=== PATIENT | female | born 1930 | race Caucasian/White ===

== ENCOUNTER → 2016-08-08 | Day surgery (SDC) | payer MEDICARE, BC ==
[~2016-08-08] MED LIST: ACYCLOVIR400 MG PO; ALPRAZOLAM1 MG PO; AMITIZA24 MCG PO; ANASTROZOLE1 MG PO; ANEXSIA 7.5/3251 TA1 PO; ARIMIDEX1 MG PO; BYSTOLIC10 MG PO; C-10001000 M1 PO; CELEBREX PO; DIOVAN HCT 3201 EACH PO; DIOVAN PO; DULCOLAX5 M1; DULCOLAX5 MG PO; EXFORGE 10-3201 TAB PO; EXFORGE 5-320 M1 TAB PO; FUROSEMIDE40 MG PO; FUROSEMIDE80 MG PO; HYDROCODON-ACE1 EAC7 PO; HYDROCODONE/APA1 T16 PO; K-DUR20 ME1 PO; KCL PO; LASIX PO; MICRO-K PO; MONTELUKAST SOD10 MG PO; OMEPRAZOLE20 M2 PO; OS-CAL 500+D CA1 TA1 PO; OS-CAL 500+D31 EACH PO; PHENERGAN25 M1 PO; PHILLIPS' COLO1 EACH PO; PROAIR HFA8.5 GM INH; PROBIOTIC1 EAC3 PO; PROTONIX PO; STOOL SOFTENER100 M1 PO; TRAMADOL HCL50 M2 PO; TRIAMCINOLONE A15 G3 EXT; VALSARTAN320 MG PO; VITAMIN B-121500 MCG PO; VITAMIN E1000 UNI1 PO; VOLTAREN75 MG PO
--- NOTE | ~2016-08-08 | OR ---
Unit #: [id number] #: [id number] Patient: MAC DAY [id number] [address] [place], [place] [address] [id number] O MR#: [id number] NAME: MAC DAY ROOM: Date of Procedure: 08/08/2016 Admission Date: 08/08/2016 Surgeon: Sergei Jones M.D. : 1930 Attending Physician: Sergei Jones M.D. Primary Care Physician: Luis Ro M.D. OPERATIVE REPORT PREOPERATIVE DIAGNOSES Back pain, radiculopathy, spinal stenosis, degenerative disk disease. POSTOPERATIVE DIAGNOSES Back pain, radiculopathy, spinal stenosis, degenerative disk disease. PROCEDURE PERFORMED Lumbar epidural steroid injection with intravenous sedation and fluoroscopic guidance for needle localization. INDICATIONS FOR PROCEDURE The patient is an 86-year-old female with return of significant pain of back and left lower extremity. She has severe multilevel multifactorial disease and is poorly responsive to medication. She is not a surgical candidate. She failed other rehab. Epidural steroids reasonable palliation. Last injection was done little bit over 3 months ago. Based on good response, plan is to repeat injection today. She does get these injections a little more frequent quite significant amounts of pain. DESCRIPTION OF PROCEDURE The patient was placed in a seated position. Standard monitors were applied. 2 mg of Versed were given for sedation and anxiolysis, which were adequate. Vital signs remained stable. Sterile prep and drape then of the lumbar area was performed. The skin then at the L4-L5 level was localized with 1% lidocaine. An 18-gauge Clarus Therapeuticstead needle was then advanced via loss of resistance technique and fluoroscopic guidance in toward the epidural space. The patient did not complain of any pain or paresthesia during needle advancement. After confirming proper positioning with fluoroscopy and radiographic contrast, 80 mg of Depo-Medrol and 6 mL of 0.125% bupivacaine were deposited. The patient tolerated the procedure otherwise well and was discharged to the recovery room in stable condition. Dictated by... Padma Song/crystal TD: 08/09/2016 01:08 JOB #: [id number] Unit #: [id number] #: [id number] Patient: MAC DAY OPERATIVE REPORT Page 1 of 1 X Sergei Jones MD X PROCEDURE OPERATIVE NOTE
== END | disposition home or self-care (01) ==
LOC: CCSC 10:14
DX: M51.16 Intervertebral disc disorders with radiculopathy, lumbar region (principal); M48.06 Spinal stenosis, lumbar region; K21.9 Gastro-esophageal reflux disease without esophagitis; M19.90 Unspecified osteoarthritis, unspecified site; I10 Essential (primary) hypertension; E03.9 Hypothyroidism, unspecified; I73.9 Peripheral vascular disease, unspecified; B20 Human immunodeficiency virus [HIV] disease; Z85.038 Personal history of other malignant neoplasm of large intestine
CPT/HCPCS: J1040; J2250

== ENCOUNTER → 2016-09-19 | Day surgery (SDC) | payer MEDICARE, BC ==
--- NOTE | ~2016-09-19 | OR ---
Unit #: [id number] #: [id number] Patient: MAC DAY [id number] [address] [address] [id number] O MR#: [id number] NAME: MAC DAY. ROOM: Date of Procedure: 09/19/2016 Admission Date: 09/19/2016 Surgeon: Sergei Jones M.D. : 1930 Attending Physician: Sergei Jones M.D. Primary Care Physician: Luis Ro M.D. OPERATIVE REPORT JOB NOTE: CC: [facility] PREOPERATIVE DIAGNOSES Back pain, radiculopathy, spinal stenosis, degenerative disk disease. POSTOPERATIVE DIAGNOSES Back pain, radiculopathy, spinal stenosis, degenerative disk disease. PROCEDURE PERFORMED Lumbar epidural steroid injection with intravenous sedation and fluoroscopic guidance for needle localization. INDICATIONS FOR PROCEDURE The patient is an 86-year-old female, who has had a return of back and bilateral lower extremity pains due to significant multilevel multifactorial degenerative disk disease and spinal stenosis. The patient is not a surgical candidate. She tolerated medications poorly. Epidural steroids the only things that have given her reasonable improvement. She has got these a littme more frequently, they are the only modality that helped to settle the pain when it is badly flared. DESCRIPTION OF PROCEDURE The patient was placed in a seated position. Standard monitors were applied. 2 mg of Versed were given for sedation and anxiolysis, which were adequate. Vital signs remained stable. Sterile prep and drape then of the lumbar area was performed. The skin then at the L4-L5 level was localized with 1% lidocaine. An 18-gauge Lennon Lin[place] needle was then advanced via loss of resistance technique and fluoroscopic guidance in toward the epidural space. After confirming proper positioning with fluoroscopy and radiographic contrast, 80 mg of Depo-Medrol and 4 mL of 0.125% bupivacaine were deposited. The patient tolerated the procedure otherwise well and was discharged to the recovery room in stable condition. Dictated by... Sergei Jones M.D. LHP/modl TD: 09/20/2016 00:52 JOB #: [id number] Unit #: [id number] #: [id number] Patient: MAC DAY OPERATIVE REPORT Page 1 of 1 X Sergei Jones MD X PROCEDURE OPERATIVE NOTE
== END | disposition home or self-care (01) ==
LOC: CCSC 10:53
DX: M51.16 Intervertebral disc disorders with radiculopathy, lumbar region (principal); M48.06 Spinal stenosis, lumbar region; I10 Essential (primary) hypertension; K21.9 Gastro-esophageal reflux disease without esophagitis; M19.90 Unspecified osteoarthritis, unspecified site; E66.01 Morbid (severe) obesity due to excess calories; Z85.038 Personal history of other malignant neoplasm of large intestine
CPT/HCPCS: J1040; J2250

== ENCOUNTER → 2016-10-03 | Day surgery (SDC) | payer MEDICARE, BC ==
--- NOTE | ~2016-10-03 | OR ---
Unit #: [id number] #: [id number] Patient: MAC DAY [id number] [address] [address] [id number] O MR#: [id number] NAME: MAC DAY ROOM: Date of Procedure: 10/03/2016 Admission Date: 10/03/2016 Surgeon: Sergei Jones M.D. : 1930 Attending Physician: Sergei Jones M.D. Primary Care Physician: Luis Ro M.D. OPERATIVE REPORT PREOPERATIVE DIAGNOSES 1. Back pain, radiculopathy, degenerative disk disease. 2. Hip pain, degenerative hip disease. PROCEDURES PERFORMED 1. Lumbar epidural steroid injection with intravenous sedation and fluoroscopic guidance for needle localization. 2. Left hip injection with fluoroscopic guidance. DESCRIPTION OF PROCEDURE The patient was placed in a seated position. Standard monitors were applied. 2 mg of Versed were given for sedation and anxiolysis, which were adequate. Vital signs remained stable. Sterile prep and drape then of the lumbar area was performed. The skin at the L4 level was localized with 1% lidocaine. An 18-gauge The Bakerytead needle was then advanced via loss of resistance technique and fluoroscopic guidance in toward the epidural space. After confirming proper needle tip positioning with fluoroscopy and radiographic contrast, 80 mg of Depo-Medrol and 6 mL of 0.125% bupivacaine were deposited. The patient tolerated this part of procedure well. The patient was then placed in a supine position. Fluoroscopy was used to identify the midpoint of the left hip. The skin lateral to this prepped with alcohol and localized with 1% lidocaine. A 22-gauge Quincke point spinal needle was then advanced with fluoroscopic guidance to the greater trochanter and was advanced of the edge of this. With negative aspiration, a total a 10 mL of 0.25% bupivacaine and 40 mg of Kenalog were deposited. The patient tolerated the procedure otherwise well and was discharged to the recovery room in stable condition. Dictated by... Padma Song/crystal TD: 10/04/2016 00:23 JOB #: [id number] Unit #: [id number] #: [id number] Patient: BARBMAC M OPERATIVE REPORT Page 1 of 1 X Sergei Jones MD X PROCEDURE OPERATIVE NOTE
== END | disposition home or self-care (01) ==
LOC: CCSC 10:57
DX: M51.16 Intervertebral disc disorders with radiculopathy, lumbar region (principal); M16.12 Unilateral primary osteoarthritis, left hip; E66.01 Morbid (severe) obesity due to excess calories; K21.9 Gastro-esophageal reflux disease without esophagitis; I10 Essential (primary) hypertension; I73.9 Peripheral vascular disease, unspecified; Z85.038 Personal history of other malignant neoplasm of large intestine; Z79.51 Long term (current) use of inhaled steroids; Z79.891 Long term (current) use of opiate analgesic; Z79.899 Other long term (current) drug therapy
CPT/HCPCS: J1040; J2250; J3301

== ENCOUNTER → 2016-10-17 | Day surgery (SDC) | payer MEDICARE, BC ==
--- NOTE | ~2016-10-17 | OR ---
Unit #: [id number] #: [id number] Patient: MAC DAY [id number] [address] [place], [place] [address] [id number] O MR#: [id number] NAME: MAC DAY. ROOM: Date of Procedure: 10/17/2016 Admission Date: 10/17/2016 Surgeon: Sergei Jones M.D. : 1930 Attending Physician: Sergei Jones M.D. Referring Physician: Sergei Jones M.D. Primary Care Physician: Luis Ro M.D. OPERATIVE REPORT PREOPERATIVE DIAGNOSES Back pain, radiculopathy, spinal stenosis, degenerative disk disease. POSTOPERATIVE DIAGNOSES Back pain, radiculopathy, spinal stenosis, degenerative disk disease. PROCEDURE PERFORMED Lumbar epidural steroid injection with intravenous sedation and fluoroscopic guidance for needle localization. INDICATIONS FOR PROCEDURE The patient is an 86-year-old female with previously mentioned nonsurgical pathology and treated medically with p.r.n. epidural steroid injections. She has tried single injection She had two injections done at this point over the last few weeks. We are going to proceed with a final injection today and then see her back in the office. DESCRIPTION OF PROCEDURE The patient was placed in a seated position. Standard monitors were applied. 2 mg of Versed were given for sedation and anxiolysis, which were adequate. Vital signs remained stable. Sterile prep and drape then of the lumbar area was performed. The skin at the L4-L5 level was localized with 1% lidocaine. An 18-gauge Hoojatead needle was then advanced via loss of resistance technique and fluoroscopic guidance in toward the epidural space. After confirming this position with fluoroscopy and radiographic contrast, 80 mg of Depo-Medrol and 4 mL of 0.125% bupivacaine were deposited. The patient tolerated the procedure otherwise well. Dictated by... Padma Song/elliel TD: 10/18/2016 10:37 JOB #: [id number] Unit #: [id number] #: [id number] Patient: MAC DAY OPERATIVE REPORT Page 1 of 1 X Sergei Jones MD X PROCEDURE OPERATIVE NOTE
== END | disposition home or self-care (01) ==
LOC: CCSC 10:56
PROVIDERS: Pain Medicine Pain Medicine
PROC: 3E0S3BZ Introduction of Anesthetic Agent into Epidural Space, Percutaneous Approach (ICD-10-PCS; 2016-10-17)
PROC: 3E0S33Z Introduction of Anti-inflammatory into Epidural Space, Percutaneous Approach (ICD-10-PCS; principal; 2016-10-17 12:00)
DX: M48.06 Spinal stenosis, lumbar region (principal); M51.16 Intervertebral disc disorders with radiculopathy, lumbar region; K21.9 Gastro-esophageal reflux disease without esophagitis; I10 Essential (primary) hypertension; M19.90 Unspecified osteoarthritis, unspecified site; Z85.038 Personal history of other malignant neoplasm of large intestine
CPT/HCPCS: J1040; J2250

== ENCOUNTER → 2016-11-11 | Outpatient (CLI) | payer MEDICARE, BC ==
--- NOTE | ~2016-11-11 | MY29 ---
[facility] A Service of [facility] RADIOLOGY TEXT RESULTS PATIENT: MAC DAY LOCATION: [facility] : 32 UNIT #: [id number] AGE: [address]: WILLIAM VICENTE MD SEX: F ORDER DR: [id number] [facility] [address] [place], [place] [address] [id number] O MR#: [id number] Acc #: [id number] NAME: MAC DAY : 1930 SEX: F STUDY DATE/TIME: 11/11/2016 14:22 UNIT: [facility] ROOM: STUDY DESCRIPTION: MY DOMENIC SCREENING W/ CAD BILAT Attending Physician: William Vicente M.D. Ordering Physician: William Vicente M.D. Primary Care Physician: Luis Ro M.D. MEDICAL IMAGING REPORT This report is preliminary unless electronic signature is present EXAM Digital screening mammogram 11/11/2016 HISTORY 86-year-old woman, previous left lumpectomy with adjuvant therapy. Personal and family history, niece. Annual screening. COMPARISON STUDIES Comparison mammograms date to 01/17/2006 with most recent 11/01/2015. FINDINGS Digital imaging of each breast was completed utilizing screening protocol. Review includes FDA-approved CAD device. Lumpectomy markers are placed on the left. Breast parenchyma is fatty replaced and stable. I see no interval occurring mass. Lumpectomy scar is omitted from today's images related to positioning. There is continuing post-radiation skin thickening about the nipple areolar complex on the left. There are secretory calcifications bilaterally. IMPRESSION Exam is somewhat limited due to inability to optimally position the left breast. The lumpectomy scar is omitted from this year's exam. I see no suspicious finding at this time. Annual screening recommended. Patients over the age of 40 are entered into a reminder system with target due date for the next mammogram. A result letter will also be sent to the patient. BIRADS:2 [facility] A Service of [facility] RADIOLOGY TEXT RESULTS PATIENT: MAC DAY LOCATION: [facility] : 32 UNIT #: [id number] AGE: [address]: WILLIAM VICENTE MD SEX: F ORDER DR: Dictated by... Issa Pulido M.D. THIS IS AN ELECTRONICALLY VERIFIED REPORT Issa Pulido M.D. at 11/12/2016 12:22 PM REINA/óscar TD: 11/12/2016 01:27 JOB #: [id number] MEDICAL IMAGING REPORT Page 1 of 1 COPY
== END | disposition home or self-care (01) ==
LOC: CWCC 14:06
DX: Z12.31 Encounter for screening mammogram for malignant neoplasm of breast (principal); Z85.3 Personal history of malignant neoplasm of breast; Z80.3 Family history of malignant neoplasm of breast; Z98.890 Other specified postprocedural states
CPT/HCPCS: G0202

== ENCOUNTER 2016-12-07 05:14 | Emergency (ER) | payer MEDICARE, BC ==
[~2016-12-07] VITALS: Ht 154.9 cm; Wt 133.8 kg
--- NOTE | ~2016-12-07 | CR72 ---
[facility] A Service of [facility] RADIOLOGY TEXT RESULTS PATIENT: MAC DAY LOCATION: [facility] : 32 UNIT #: [id number] AGE: [address]: Fawn Rodriguez MD SEX: F ORDER DR: [id number] [facility] [address] [place], [place] [address] [id number] E MR#: [id number] Acc #: [id number] NAME: MAC DAY. : 1930 SEX: F STUDY DATE/TIME: 12/07/2016 5:43 UNIT: [facility] ROOM: STUDY DESCRIPTION: CR Chest Single View Portable Attending Physician: Fawn Rodriguez M.D. Ordering Physician: Thomas Smith M.D. Primary Care Physician: Luis Ro M.D. MEDICAL IMAGING REPORT This report is preliminary unless electronic signature is present EXAM Chest x-ray, 12/07/2016. HISTORY 86-year-old female in the ED complaining of 2-week history of cough, weakness, and headache. TECHNIQUE AP portable chest x-ray. FINDINGS Low lung volumes with mild bibasilar pulmonary atelectasis. Lungs otherwise clear. No visible airspace consolidation or pleural effusion. Moderate cardiomegaly. Pulmonary vascularity is within normal limits. IMPRESSION Moderate cardiomegaly. Shallow lung expansion with mild bibasilar atelectasis. Dictated by... Se Watts M.D. THIS IS AN ELECTRONICALLY VERIFIED REPORT Se Watts M.D. at 12/07/2016 3:54 PM RGW/carson TD: 12/07/2016 12:58 JOB #: [id number] MEDICAL IMAGING REPORT Page 1 of 1 COPY
--- NOTE | ~2016-12-07 | CT71 ---
[facility] A Service of [facility] RADIOLOGY TEXT RESULTS PATIENT: MAC DAY [id number] 32 UNIT #: [id number] AGE: [address]: Fawn Rodriguez MD SEX: F ORDER DR: [id number] [facility] [address] [place], [place] [address] [id number] E MR#: [id number] Acc #: [id number] NAME: MAC DAY : 1930 SEX: F STUDY DATE/TIME: 12/07/2016 6:00 UNIT: [facility] ROOM: STUDY DESCRIPTION: CT Head Wo Contrast Attending Physician: Fawn Rodriguez M.D. Ordering Physician: Thomas Smith M.D. Primary Care Physician: Luis Ro M.D. MEDICAL IMAGING REPORT This report is preliminary unless electronic signature is present EXAM CT head without IV contrast COMPARISON CT temporal bones dated July 11, 2003. INDICATIONS 86-year-old female with headaches, dry mouth, dizziness and confusion today. FINDINGS This CT exam was performed with one or more of the following radiation dose reduction techniques: Automatic exposure control, adjustment of mA and/or kV according to patient size, and iterative reconstruction. The exam is limited by motion. There is no evidence of acute fracture or suspicious osseous lesions. There are calcifications of the cavernous internal carotid arteries. No abnormal extraaxial fluid collection. No mass effect. No acute intracranial hemorrhage. Mild cerebral and cerebellar volume loss, commensurate with patient age. Minimal senescent calcification of the right lentiform nucleus. Evaluation of the posterior fossa is limited by streak artifact from inner table of the calvarium and motion. No convincing evidence of acute ischemia. IMPRESSION No acute intracranial abnormality. Please note the exam is mildly limited by motion. Mild cerebral and cerebellar volume loss, commensurate with patient age. Dictated by... Evin Riddle M.D. THIS IS AN ELECTRONICALLY VERIFIED REPORT [facility] A Service of [facility] RADIOLOGY TEXT RESULTS PATIENT: MAC DAY [id number] : 32 UNIT #: [id number] AGE: [address]: Fawn Rodriguez MD SEX: F ORDER DR: Eivn Riddle M.D. at 12/09/2016 9:55 PM BLM/psc TD: 12/07/2016 11:47 JOB #: [id number] MEDICAL IMAGING REPORT Page 1 of 1 COPY
--- NOTE | ~2016-12-07 | CT4 ---
[facility] A Service of [facility] RADIOLOGY TEXT RESULTS PATIENT: MAC DAY LOCATION: [facility] : 32 UNIT #: [id number] AGE: [address]: Fawn Rodriguez MD SEX: F ORDER DR: [id number] [facility] [address] [place], [place] [address] [id number] E MR#: [id number] Acc #: [id number] NAME: MAC DAY. : 1930 SEX: F STUDY DATE/TIME: 12/07/2016 9:24 UNIT: [facility] ROOM: STUDY DESCRIPTION: CT Abd and Pelv Wo Cont Attending Physician: Fawn Rodriguez M.D. Ordering Physician: Thomas Smith M.D. Primary Care Physician: Luis Ro M.D. MEDICAL IMAGING REPORT This report is preliminary unless electronic signature is present EXAM CT of the abdomen and pelvis without contrast HISTORY Abdominal pain for 2 weeks, not improving. PROCEDURE Axial CT abdomen and pelvis without contrast with multiplanar reformats. This CT exam was performed with one or more of the following radiation dose reduction techniques: automatic exposure control, adjustment of mA and/or kV according to patient size, and iterative reconstruction. COMPARISON None FINDINGS The lung bases are unremarkable. ABDOMEN: The liver and gallbladder and spleen and pancreas are unremarkable on this unenhanced exam. The kidneys and adrenal glands appear normal. Small calcifications are seen in the renal doreen bilaterally but these are likely vascular rather than representing non-obstructing stones. There is no bowel obstruction, hernia, mass, inflammatory change or adenopathy. PELVIS: There is no pelvic mass, inflammatory change or abnormal fluid collection. The appendix is not identified but there is no evidence of appendicitis. There is spinal degenerative change but no acute bony abnormality. IMPRESSION [facility] A Service of [facility] RADIOLOGY TEXT RESULTS PATIENT: MAC DAY LOCATION: [facility] : 32 UNIT #: [id number] AGE: [address]: Fawn Rodriguez MD SEX: F ORDER DR: 1. No acute abnormality. No renal or bowel or biliary obstruction. No mass or inflammatory change. 2. Small calcifications in the renal doreen bilaterally are almost certainly vascular calcifications rather than non-obstructing stones. The exam is otherwise unremarkable. The appendix is not identified but there is no evidence of appendicitis. Dictated by... Manuel Duran M.D. THIS IS AN ELECTRONICALLY VERIFIED REPORT Maunel Duran M.D. at 12/12/2016 5:04 PM BECKA/adria TD: 12/07/2016 13:49 JOB #: [id number] MEDICAL IMAGING REPORT Page 1 of 1 COPY
--- NOTE | ~2016-12-07 | EKG ---
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
[2016-12-07 07:17] LABS: POC - CKMB <1.0 ng/mL (0.0-7.9); POC - TROPONIN <0.05 ng/mL (<=0.05)
[2016-12-07 07:24] LABS: BASOPHIL# 0.1 X10e3 (0-0.3); EOSINOPHIL# 0.2 X10e3 (0-0.7); EOSINOPHIL% 2.4 % (0.0-7.0); HEMATOCRIT 39.1 % (35.0-45.0); HEMOGLOBIN 13.2 gm/dL (12.0-16.0); LYMPHOCYTE# 1.3 X10e3 (1.0-3.5); LYMPHOCYTE% 19.3 % (17.0-45.0); MEAN CELL VOLUME 96.5 FL (83-96); MEAN CORPUSCULAR HEMOGLOBIN 32.6 PG (28-34); MEAN CORPUSCULAR HGB CONC 33.8 g/dL (30-36); MEAN PLATELET VOLUME 8.6 FL (6.5-11.5); MONOCYTE# 0.6 X10e3 (0-1.0); MONOCYTE% 9.4 % (3.0-12.0); NEUTROPHIL# 4.6 X10e3 (1.5-7.1); NEUTROPHIL% 67.9 % (40-75); PLATELET COUNT 224 X10e3 (140-420); RED BLOOD COUNT 4.05 X10e (3.90-5.30); RED CELL DISTRIBUTION WIDTH 14.4 % (11.0-15.5); WHITE BLOOD COUNT 6.8 X10e3 (4.0-10.5)
[2016-12-07 07:25] LABS: DIFF IND NO
[2016-12-07 07:47] LABS: ALBUMIN SERUM 3.4 g/dL (3.5-5.0); BILIRUBIN,TOTAL 0.8 mg/dL (0.2-2.0); BUN/CREATININE RATIO 10.83; CALCIUM SERUM 9.1 mg/dL (8.4-10.2); CREATININE SERUM 1.2 mg/dL (0.6-1.4); GLOM FILT RATE Estimated 41.5 mL/min (>60); POTASSIUM 4.4 mmol/L (3.5-5.1); PROTEIN TOTAL SERUM 6.1 g/dL (6.0-8.3)
[2016-12-07 08:39] LABS: URINE SOURCE CLEAN CATCH
[2016-12-07 08:58] LABS: URINE APPEARANCE CLEAR; URINE BILIRUBIN NEG (NEG); URINE BLOOD NEG (NEG); URINE COLOR YELLOW; URINE GLUCOSE NEG (NEG); URINE KETONE NEG (NEG); URINE LEUKOCYTE ESTERASE NEG (NEG); URINE NITRATE NEG (NEG); URINE PH 7.5 (5-8); URINE PROTEIN NEG (NEG); URINE SPECIFIC GRAVITY 1.007 (1.003-1.035); URINE UROBILINOGEN 0.2 MG/DL (NEG)
[2016-12-07 09:03] LABS: CULTURE INDICATED? NO
== END 2016-12-07 11:52 | disposition home or self-care (01) ==
LOC: CED 05:14
PROVIDERS: Emergency Medicine
DX: J06.9 Acute upper respiratory infection, unspecified (principal); R51 Headache; I10 Essential (primary) hypertension; Z79.899 Other long term (current) drug therapy
CPT/HCPCS: 36415; 51701; 70450; 71010; 74176; 80053; 81003; 82553; 83690; 84484; 85025; 93005; 96374; 99285; J2405